=== PATIENT | male | born 1950 | race Caucasian/White ===

== ENCOUNTER 2025-06-26 08:45 | Outpatient (AMB) | payer MEDICARE, OTHER, SELFPAY ==
--- NOTE | 2025-06-26 09:02 | MHC.OFFVIS ---
Intake Visit Reasons: 6 month f/u HPI Comments Details: 75 yo man with antibody positive Myasthenia Gravis presented with double vision and generalized weakness in summer, arthritis, CTS, and RLS. HE is presenting with muscle weakness and cramping associated with myasthenia gravis and diabetic neuropathy. The muscle weakness restricts lifting activities, especially for weights exceeding 30 pounds without handles. Fatigue occurs occasionally in the afternoons, typically resolving after a brief rest. Cramping is notably present in the calves during leg extension and in the index fingers during tool use. The patient currently manages diabetes with Jardiance and is on prednisone therapy. Review of Systems Narrative - Musculoskeletal: Reports muscle weakness, especially over 30 pounds with no handle. - Neurological: Reports cramping in calves and index fingers. - Ophthalmologic: Denies double vision. - Gastrointestinal: Reports improved swallowing. - General: Reports occasional fatigue in the afternoons. Physical Exam Neuro Other: Mental Status: Alert and oriented to person, place, and time. Normal attention. Normal spontaneous speech, fluency, and comprehension. No obvious issues with mood and memory. Affect is appropriate. Cranial Nerves: CN II: Visual lugo full to confrontation, visual acuity intact. CN III, IV, : Pupils equal, round, reactive to light and accommodation. Extraocular movements are normal. CN V: Facial sensation is normal. CN VII: Facial movements symmetrical. CN VIII: Hearing intact to bedside conversation is normal. CN IX, X: Palate elevates symmetrically. CN XI: Shoulder shrug and head turn symmetrical. CN XII: Tongue midline without atrophy or fasciculations. Deep tendon reflexes are 2+ and arms and knees and 1+ and ankles. Coordination: Wtkame-dl-uhse and aqll-mb-cmry testing normal. No dysmetria. Gait and Station: No obvious gait abnormality. No ataxia or instability. Extrapyramidal: Full facial expressions and blinking. No rigidity. Movements are appropriate with no tremor or abnormality. Speech: Normal; no dysarthria or tremor. Assessment & Plan Assessment & Plan (1) Myasthenia gravis: Comment: Labs in 2020 at [facility]: ACR binding 2.45 (high), Modulating 31% (high), blocking ok, MUSK Ab ok, anti stiration 160 (high), GOLDEN ok, LA ok, anti DNA ok, ESR 2, RF <10, CRP ok, TSH ok, LFTs ok, CBC ok EMG/NCS L UE in Jun 2023: mild to mod CTS CT chest at [facility] in May 2021: no thymic lesion. Code(s): G70.00 - Myasthenia gravis without (acute) exacerbation Category: Medical (2) RLS (restless legs syndrome): Code(s): G25.81 - Restless legs syndrome Category: Medical (3) CTS (carpal tunnel syndrome): Code(s): G56.00 - Carpal tunnel syndrome, unspecified upper limb Category: Medical Qualifiers: Laterality: bilateral Qualified Code(s): G56.03 - Carpal tunnel syndrome, bilateral upper limbs Plan Impression: 1. Antibody positive generalized myasthenia gravis 2. Restless legs syndrome 3. Muscle cramps that might be due to pyridostigmine or diabetic neuropathy 4. Bilateral Carpal tunnel syndrome causing hand pain and cramps Recommendations: 1. Pyridostigmine 60 mg 1 tablet 3 times a day 2. Prednisone 2.5 mg once a day 3. Azathioprine 50 mg 1 a day 4. Folic acid 1 mg a day 5. Gabapentin 300mg one at bedtime 6. Wrist splints at night Medications: New folic acid 1 mg PO DAILY 90 tabs 1RF gabapentin 300 mg PO BEDTIME 90 caps 1RF Refilled prednisone 2.5 mg PO DAILY 90 tabs 1RF azathioprine 50 mg PO DAILY 90 tabs 1RF Coding Level of Care Code Est Pt Level 4 (98118) Global (71582) Diagnoses Myasthenia gravis G70.00 RLS (restless legs syndrome) G25.81 Bilateral carpal tunnel syndrome G56.03 Laterality: bilateral
--- OUTSIDE RECORDS SUMMARY | 2025-06-26 09:10 | XMS_ITS | Clinical Summary ---
Author Organization [facility] Address [address] [place] [address] Care Team Providers Care Health And Fitness Instructor Name Role Phone Fabian Chang MD Primary Care Provider [phone] Allergies Active Allergy Reactions Criticality Noted Date Comments Nsaids 08/22/2023 Other reaction(s): Bleeding ulcer, Past history of clinical finding Medications Medication Sig Dispensed Refills Start Date End Date Status lisinopril (PRINIVIL,ZESTRIL) tablet 20 mg Take 1 tablet (20 mg total) by mouth daily. 0 Active atorvastatin (LIPITOR) tablet 40 mg Take 1 tablet (40 mg total) by mouth daily. 0 Active omeprazole (PriLOSEC) 20 MG capsule Take 1 capsule (20 mg total) by mouth daily. 0 Active levothyroxine (SYNTHROID) tablet 100 mcg Take 1 tablet (100 mcg total) by mouth every morning on an empty stomach. 0 Active PARoxetine (PAXIL) 20 MG tablet Take 1 tablet (20 mg total) by mouth every morning. 0 Active IPRATROPIUM BROMIDE HFA IN Inhale into the lungs. 0 Active pyridostigmine (MESTINON) 60 MG tablet Take 1 tablet (60 mg total) by mouth 3 (three) times a day. 0 Active ALPRAZolam (XANAX) 0.25 MG tablet Take 1 tablet (0.25 mg total) by mouth continuous prn. 0 08/07/2023 Active Active Problems Problem Noted Date Diagnosed Date Mixed hyperlipidemia 08/22/2023 Agatston CAC score 100-199 12/29/2022 Family History Medical History Relation Name Comments Heart disease Father Hypertension Father Diabetes Mother Heart disease Mother Hypertension Mother Relation Name Status Comments Father Mother Social History Tobacco Use Types Packs/Day Years Used Date Smoking Tobacco: Never Passive Smoke Exposure: Past Smokeless Tobacco: Never Alcohol Use Standard Drinks/Week Comments Not Currently 0 (1 standard drink = 0.6 oz pur e alcohol) Sex and Gender Information Value Date Recorded Sex Assigned at Not on file Gender Identity Not on file Sexual Orientation Not on file Job Start Date Occupation Industry Not on file Not on file Not on file Last Filed Vital Signs Vital Sign Reading Time Taken Comments Blood Pressure 120/74 02/27/2024 10:30 AM EDT Pulse 82 02/27/2024 10:30 AM EDT Temperature 36.3 C (97.4 F) 11/22/2022 10:52 AM EDT Respiratory Rate - - Oxygen Saturation 99% 02/27/2024 10:30 AM EDT Inhaled Oxygen Concentration - - Weight 71.2 kg (157 lb) 02/27/2024 10:30 AM EDT Height 162.6 cm (5' 4 ) 02/27/2024 10:30 AM EDT Body Mass Index 26.95 02/27/2024 10:30 AM EDT Plan of Treatment Health Maintenance Due Date Last Done Comments Hepatitis C Screening 1950 Depression Screening 1960 Preventative Health Evaluation 02/27/1966 Shingrix-Zoster Vaccine (1 o f 2) 02/27/1998 Fall Risk Assessment 02/27/2013 Pneumococcal Vaccine (1 of 1 - PCV) 02/27/2013 RSV Adult > 60+ Yrs or (1 - 1-dose 75+ series) 02/27/2023 COVID-19 Vaccine (2 - 2024-2 6 season) 2025 05/06/2022 Influenza Vaccine (#1) 2025 0, 04/25/2019 DTap / Tdap / Td (2 - Td or Tdap) 12/08/2030 12/08/2020 Hepatitis B Vaccines Aged Out No long er eligible based on patient's age to complete this topic RSV Ped < 20 months Aged Out No longe r eligible based on patient's age to complete this topic Care Teams Health And Fitness Instructor Relationship Specialty Start Date End Date Fabian Chang MD [address] [place] [address], [place] [address] PCP - General Internal Medicine 09/28/22
--- OUTSIDE RECORDS SUMMARY | 2025-06-26 09:10 | XMS_ITS | Clinical Summary ---
Author Organization [facility] [place] Address [address] [place] [address] Phone Care Team Providers Care Shipping Assistant Name Role Phone CharleneFabian núñez Primary Care Provider [phone] Allergies Active Allergy Reactions Criticality Noted Date Comments Nsaids (Non-Steroidal Anti-Inflammatory Drug) 08/22/2023 Other reaction(s): Bleeding ulcer, Past history of clinical finding Medications ALPRAZolam (XANAX) 0.25 mg tablet Take 1 tablet (0.25 mg total) by mouth continuously if needed. 3 Active atorvastatin (LIPITOR) 40 mg tablet Take 1 tablet (40 mg total) by mouth 1 (one) time each day. Active ipratropium HFA (ATROVENT HFA) 17 mcg/actuation inhaler Inhale into the lungs. Active levothyroxine (SYNTHROID, LEVOTHROID) 100 mcg tablet Take 1 tablet (100 mcg total) by mouth 1 (one) time each day before breakfast. Active lisinopriL (PRINIVIL,ZESTR IL) 20 mg tablet Take 1 tablet (20 mg total) by mouth 1 (one) time each day. Active omeprazole (PriLOSEC) [address] capsule Take 1 capsule (20 mg total) by mouth 1 (one) time each day. Active PARoxetine (PAXIL) 20 mg tablet Take 1 tablet (20 mg total) by mouth 1 (one) time each day in the morning. Active pyRIDostigmine (MESTINON) 60 mg tablet Take 1 tablet (60 mg total) by mouth 3 (three) times a day. Active azaTHIOprine (IMURAN) 50 mg tablet Take 1 tablet (50 mg total) by mouth 1 (one) time each day. Active Jardiance 10 mg tablet Take 1 tablet (10 mg total) by mouth 1 (one) time each day. Active Active Problems Problem Noted Date Diagnosed Date Mixed hyperlipidemia 08/22/2023 Agatston CAC score 100-199 12/29/2022 Surgical History Surgery Date Site/Laterality Comments LUMBAR LAMINECTOMY 12/2022 PROCEDURE: HISTORICAL LUMB LAMINECTOMY CARPAL TUNNEL RELEASE 2019 Right PROCEDURE: HISTORICAL CARPAL TUNNEL REL Medical History Medical History Date Comments Anxiety state DX:Anxiety state Diabetes mellitus type 2, co ntrolled, with complications (CMS/HCC V24, CMS/HCC V28) DX:Diabetes mellitus type 2, controlled, with complications ([facility]) Hypothyroidism DX:Hypothyroidis m Essential hypertension DX:Essent ial hypertension Social History Tobacco Use Types Packs/Day Years Used Date Smoking Tobacco: Never Smokeless Tobacco: Never Tobacco Cessation:Counseling Given: Not Answered Alcohol Use Standard Drinks/Week Comments Yes 0 (1 standard drink = 0.6 oz pur e alcohol) rarely Sex and Gender Information Value Date Recorded Sex Assigned at Not on file Legal Sex Male 8:26 PM EST Gender Identity Not on file Sexual Orientation Not on file Obstetrics History Last Filed Vital Signs Vital Sign Reading Time Taken Comments Blood Pressure 120/80 03/04/2025 9:23 AM EDT Pulse 60 03/04/2025 9:23 AM EDT Temperature - - Respiratory Rate - - Oxygen Saturation 97% 03/04/2025 9:23 AM EDT Inhaled Oxygen Concentration - - Weight 72.6 kg (160 lb) 03/04/2025 9:23 AM EDT Height 162.6 cm (5' 4 ) 03/04/2025 9:23 AM EDT Body Mass Index 27.46 03/04/2025 9:23 AM EDT Plan of Treatment Upcoming Encounters Date Type Department Care Team (Late st Contact Info) Description 03/10/2026 9:30 AM EDT Office Visit [facility] [place] [address] [place] [phone] Rick Mckeon MD [address] [place] [phone] Health Maintenance Due Date Last Done Comments Diabetes: Annual GFR (Glomerular Filtration Rate) 1950 Diabetes: Annual Foot Exam 02/27/1958 Diabetes: Annual Retina Eye Exam 02/27/1958 Pneumococcal Vaccine: 50+ Years (1 of 2 - PCV) 02/27/1967 Zoster Vaccines (1 of 2) 02/27/1967 COVID-19 Vaccine (2 - Pfizer risk series) 05/27/2022 05/06/2022 RSV Immunization Adult Patients (1 - 1-dose 75+ series) 02/27/2023 Cholesterol Screening (Lipid Panel) 09/09/2023 Falls Risk Assessment 09/09/2023 Hepatitis C Screening 09/09/2023 Medicare Annual Wellness Visit 09/09/2023 Social Influencers of Health Screening 09/09/2023 Depression Screening 08/15/2024 Diabetes: Blood Sugar Contro l Test (HGBA1C) 03/04/2025 Hypertension/CHF/CAD Annual BMP Blood Test 03/04/2025 Influenza Vaccine (#1) 2025 , 04/25/2019 Diabetes: Annual Urine Albumin-Creatinine Ratio (uACR) 01/10/2026 01/10/2025, 02/25/2024 DTaP,Tdap,and Td Vaccines (2 - Td or Tdap) 12/08/2030 12/08/2020 HIB Vaccines Aged Out No longer eligi ble based on patient's age to complete this topic HPV Vaccines Aged Out No longer eligi ble based on patient's age to complete this topic Hepatitis A Vaccines Aged Out No long er eligible based on patient's age to complete this topic Hepatitis B Vaccines Aged Out No long er eligible based on patient's age to complete this topic IPV Vaccines Aged Out No longer eligi ble based on patient's age to complete this topic MMR Vaccines Aged Out No longer eligi ble based on patient's age to complete this topic Meningococcal ACWY Vaccine Aged Out N o longer eligible based on patient's age to complete this topic Meningococcal B Vaccine Aged Out No l onger eligible based on patient's age to complete this topic RSV Immunization Patients Under 20 months Aged Out No longer eligible b ased on patient's age to complete this topic Varicella Vaccines Aged Out No longer eligible based on patient's age to complete this topic Insurance MEDICARE [facility] Care Teams Shipping Assistant Relationship Specialty Start Date End Date Fabian Chang DO [address] [place] [id number] PCP - General 09/28/22
== END 2025-06-26 09:14 | disposition home or self-care (01) ==
LOC: HO.HSM 08:46
PROVIDERS: PCP Internal Medicine; Referring Provider Internal Medicine; Visit Provider Psychiatry & Neurology Neurology
DX: G70.00 Myasthenia gravis without (acute) exacerbation (principal); G25.81 Restless legs syndrome; G56.03 Carpal tunnel syndrome, bilateral upper limbs
CPT/HCPCS: 99214; G2211

== ENCOUNTER → 2025-06-26 08:45 | Outpatient (BNVA) | payer MEDICARE, OTHER, SELFPAY | PROVIDERS: PCP Internal Medicine; Referring Provider Internal Medicine; Visit Provider Psychiatry & Neurology Neurology | DX: G70.00 Myasthenia gravis without (acute) exacerbation (principal); G25.81 Restless legs syndrome; G56.03 Carpal tunnel syndrome, bilateral upper limbs | CPT/HCPCS: 99212 ==